=== PATIENT | male | born 1950 | race Caucasian/White ===

== ENCOUNTER 2017-06-12 04:45 | Emergency (ER) | payer MEDICARE, OTHER ==
[~2017-06-12] VITALS: Ht 175.3 cm; Wt 72.4 kg
[2017-06-12] MEDS ORDERED: LIDOCAINE 1%, 20ML ONE (05:50)
[2017-06-12] MEDS ORDERED: LIDOCAINE 1%, 20ML SQ ONE (06:00)
[2017-06-12] MEDS ORDERED: CEFTRIAXONE 1,000 MG IM ONE (06:00)
[2017-06-12] MEDS ORDERED: SODIUM CHLORIDE FLUSH 10ML SYR IVF ONE (06:00)
[2017-06-12 06:24] LABS: BLOOD UREA NITROGEN 32 mg/dL (7-18)
[2017-06-12] MEDS ORDERED: CEFTRIAXONE PMX 1GM/50ML 50 ML ONE (06:30)
[2017-06-12] MEDS ORDERED: CEFTRIAXONE PMX 1GM/50ML 50 ML IV ONE (07:00)
[2017-06-12] MEDS ORDERED: BACITRACIN ZINC OINT 500U/GM, 0.9 GM ONE (07:02)
[2017-06-12 07:13] VITALS: BP 137/79
== END 2017-06-12 07:18 | disposition home or self-care (01) ==
LOC: ED 06:35
DX: L03.011 Cellulitis of right finger (principal); L02.511 Cutaneous abscess of right hand; I10 Essential (primary) hypertension; E78.00 Pure hypercholesterolemia, unspecified; F17.200 Nicotine dependence, unspecified, uncomplicated
CPT/HCPCS: 26010; 36415; 80048; 82040; 85025; 87070; 87205; 99284

== ENCOUNTER 2017-06-13 08:21 | Emergency (ER) | payer MEDICARE, OTHER ==
[~2017-06-13] VITALS: Ht 175.3 cm; Wt 72.0 kg
[2017-06-13 08:24] VITALS: BP 156/80
[2017-06-13] MEDS ORDERED: CEFTRIAXONE 1,000 MG IM ONE (09:30)
[2017-06-13] MEDS ORDERED: BACITRACIN ZINC OINT 500U/GM, 0.9 GM ONE (09:31)
[2017-06-13] MEDS ORDERED: LIDOCAINE 1%, 20ML ONE (09:49)
[2017-06-13] MEDS ORDERED: CEFTRIAXONE 1,000 MG ONE (09:49)
== END 2017-06-13 10:19 | disposition home or self-care (01) ==
LOC: ED 09:18
DX: L03.113 Cellulitis of right upper limb (principal); I10 Essential (primary) hypertension; E78.00 Pure hypercholesterolemia, unspecified
CPT/HCPCS: 96372; 99283; J0696

== ENCOUNTER 2017-08-21 06:18 | Emergency (ER) | payer MEDICARE, OTHER ==
[~2017-08-21] VITALS: Ht 165.1 cm; Wt 73.3 kg
[2017-08-21 06:37] LABS: HEMATOCRIT 47.4 % (39.2-51.8); HEMOGLOBIN 15.9 g/dL (13.7-18.0); WHITE BLOOD COUNT 9.3 x10^3/uL (3.4-10)
[2017-08-21] MEDS ORDERED: ALTEPLASE IV ONE ×3 (07:30→08:00)
[2017-08-21] MEDS ORDERED: SODIUM CHLORIDE 0.9% 1,000 ML IV ONE (07:51)
[2017-08-21] MEDS ORDERED: SODIUM CHLORIDE FLUSH 10ML SYR IVF PRN (08:00)
[2017-08-21 09:03] VITALS: BP 122/65
== END 2017-08-21 10:20 | disposition short-term general hospital (02) ==
LOC: ED 07:18 → EDIP 07:52 → UNDOADMIN 07:52 → ED 10:20
DX: I63.311 Cerebral infarction due to thrombosis of right middle cerebral artery (principal); I10 Essential (primary) hypertension
CPT/HCPCS: 36415; 70450; 71010; 80047; 84484; 85025; 85610; 85730; 93005; 96365; 96375; 99291; J2997; J7030

== ENCOUNTER → 2017-12-02 | Outpatient (CLI) | payer MEDICARE, OTHER ==
[~2017-12-02] MED LIST: ASPI-621 PO; ATOR-2 PO; CLOP75TA PO; METO25TA35 PO
[2017-12-02 11:12] LABS: BASOPHILS # (AUTO) 0.04 x10^3/uL (0-0.1); BASOPHILS % (AUTO) 1 % (0-1); EOSINOPHILS # (AUTO) 0.37 x10^3/uL (0-0.4); EOSINOPHILS % (AUTO) 6 % (1-7); LYMPHOCYTES # (AUTO) 1.73 x10^3/uL (1-3.4); LYMPHOCYTES % (AUTO) 29 % (22-44); MD NO; MEAN CORPUSCULAR HEMOGLOBIN 30.7 pg (27.5-34.5); MEAN CORPUSCULAR HGB CONC 32.9 g/dL (33.2-36.2); MEAN CORPUSCULAR VOLUME 93.2 fL (81-97); MEAN PLATELET VOLUME 8.4 fL (7.4-10.4); MONOCYTES % (AUTO) 8 % (2-9); NEUTROPHILS # (AUTO) 3.44 x10^3/uL (1.8-6.8); NEUTROPHILS % (AUTO) 57 % (42-75); PLATELET COUNT 204 x10^3/uL (130-400); RED BLOOD COUNT 4.84 x10^6/uL (4.38-5.82)
[2017-12-02 11:16] LABS: ALBUMIN 3.5 g/dL (3.4-5.0); ANION GAP 7 mmol/L (5-15); CALCIUM 9.1 mg/dL (8.5-10.1); CHLORIDE 108 mmol/L (98-107)
[2017-12-02 11:19] LABS: ALANINE AMINOTRANSFERASE 34 U/L (12-78); ALKALINE PHOSPHATASE 134 U/L (45-117); BILIRUBIN,TOTAL 0.5 mg/dL (0.2-1.0); CREATININE 0.79 mg/dL (0.7-1.3); TOTAL PROTEIN 6.5 g/dL (6.4-8.2)
== END | disposition home or self-care (01) ==
LOC: STAR 09:57
PROVIDERS: ATTEND Surgery
DX: Z01.818 Encounter for other preprocedural examination (principal); R94.31 Abnormal electrocardiogram [ECG] [EKG]
CPT/HCPCS: 36415; 80053; 85025; 93005

== ENCOUNTER 2017-12-08 12:56 | Inpatient (IN) | payer MEDICARE, OTHER ==
[2017-12-02 10:21] VITALS: BP 156/88
[~2017-12-08] VITALS: Ht 175.3 cm; Wt 65.3 kg
[2017-12-08] MEDS ORDERED: LACTATED RINGERS 1,000 ML IV SCH ×2 (13:12→13:32)
[2017-12-08] MEDS ORDERED: LIDOCAINE 1%, 2ML SQ PRN (13:30)
[2017-12-08] MEDS ORDERED: BUPIVACAINE/PF 0.5% ONE (14:07)
[2017-12-08] MEDS ORDERED: PROTAMINE SULFATE 10 MG/ML, 5ML ONE (14:07)
[2017-12-08] MEDS ORDERED: LIDOCAINE 1%, 50ML ONE (14:07)
[2017-12-08] MEDS ORDERED: PAPAVERINE 30 MG/ML, 2ML ONE (14:07)
[2017-12-08] MEDS ORDERED: THROMBIN 20,000 UNIT VIAL TP ONE (14:08)
[2017-12-08] MEDS ORDERED: EPINEPHRINE 1 MG/ML, 1ML ONE (14:08)
[2017-12-08] MEDS ORDERED: BACITRACIN 50,000 UNIT ONE (14:08)
[2017-12-08] MEDS ORDERED: HEPARIN 1,000 UNITS/ML, 10ML ONE (14:08)
[2017-12-08] MEDS ORDERED: MIDAZOLAM 1 MG/ML, 2ML ONE (14:12)
[2017-12-08] MEDS ORDERED: FENTANYL PF 250 MCG/5ML ONE (14:12)
[2017-12-08] MEDS ORDERED: PROPOFOL 10 MG/ML, 20ML ONE (14:17)
[2017-12-08] MEDS ORDERED: ROCURONIUM 10 MG/ML,10ML ONE (14:17)
[2017-12-08] MEDS ORDERED: SODIUM CHLORIDE 0.9% PF 10ML ONE (14:18)
[2017-12-08] MEDS ORDERED: CEFAZOLIN 1,000 MG ONE ×2 (14:19)
[2017-12-08] MEDS ORDERED: REMIFENTANIL 2 MG ONE (14:28)
[2017-12-08] MEDS ORDERED: HYDROmorphone 1 MG/ML, 1ML IV PRN (15:00)
[2017-12-08] MEDS ORDERED: OXYcodone 5 MG/5 ML ORAL.SOL UDC PO PRN (15:00)
[2017-12-08] MEDS ORDERED: LABETALOL 5MG/ML, 20ML IV PRN (15:00)
[2017-12-08] MEDS ORDERED: ONDANSETRON 2MG/ML, 2ML IVPush PRN (15:00)
[2017-12-08] MEDS ORDERED: PROMETHAZINE 25 MG/ML, 1ML IV PRN (15:00)
[2017-12-08] MEDS ORDERED: FENTANYL PF 100 MCG/2ML IV PRN (15:00)
[2017-12-08] MEDS ORDERED: hydrALAzine 20 MG/ML, 1ML IV PRN (15:00)
[2017-12-08] MEDS ORDERED: MEPERIDINE/PF 25MG/0.5ML IVPush PRN (15:00)
[2017-12-08] MEDS ORDERED: ACETAMINOPHEN 325 MG TABLET PO PRN ×2 (15:00→21:00)
[2017-12-08] MEDS ORDERED: PHENYLEPHRINE 10 MG/ML ONE (15:07)
[2017-12-08] MEDS ORDERED: NEOSTIGMINE 1 MG/ML, 10ML ONE (16:19)
[2017-12-08] MEDS ORDERED: GLYCOPYRROLATE 0.4 MG/2 ML, 2ML ONE ×2 (16:19)
[2017-12-08] MEDS ORDERED: hydrALAzine 20 MG/ML, 1ML ONE (19:25)
[2017-12-08] MEDS: SODIUM CHLORIDE FLUSH 10ML SYR IVF SCH (21:00)
[2017-12-08] MEDS ORDERED: ENOXAPARIN 40 MG/0.4 ML SQ SCH (21:00)
[2017-12-08] MEDS ORDERED: LABETALOL 5MG/ML, 20ML IVPush PRN (21:00)
[2017-12-08] MEDS ORDERED: ONDANSETRON 2MG/ML, 2ML IV PRN (21:00)
[2017-12-08] MEDS ORDERED: ATORVASTATIN 80 MG TABLET PO SCH (21:00)
[2017-12-08] MEDS ORDERED: morphine SULFATE 10 MG/ML, 1ML IV PRN (21:00)
[2017-12-08] MEDS ORDERED: PHENYLEPHRINE 10 MG in DEXTROSE 5% 249 ML IV SCH (21:00)
[2017-12-08] MEDS ORDERED: POTASSIUM CHLORIDE 20 MEQ in D5%-0.45% NACL 1,000 ML IV SCH (21:00)
[2017-12-08] MEDS ORDERED: HYDROcodone/APAP 5/325 TABLET PO PRN (21:00)
[2017-12-08] MEDS ORDERED: NITROPRUSSIDE 50 MG in DEXTROSE 5% 248 ML IV SCH (21:00)
[2017-12-08 23:38] VITALS: BP 111/59
[2017-12-09 03:40] VITALS: BP 112/59
[2017-12-09] MEDS ORDERED: METOPROLOL TARTRATE 25 MG TABLET PO SCH (06:00)
[2017-12-09 06:50] VITALS: BP 112/55
[2017-12-09] MEDS: SODIUM CHLORIDE FLUSH 10ML SYR IVF SCH (07:38)
[2017-12-09] MEDS ORDERED: ASPIRIN 81 MG TABLET CHEW PO SCH (09:00)
[2017-12-09] MEDS ORDERED: CLOPIDOGREL 75 MG TABLET PO SCH (09:00)
[2017-12-09] MEDS ORDERED: HYDR-3307 PO (09:51)
[2017-12-09] MEDS ORDERED: DOCU-131 PO (09:56)
[2017-12-09] MEDS ORDERED: ONDA4TAB10 PO (09:57)
== END 2017-12-09 10:06 | disposition home or self-care (01) | DRG 38 ==
LOC: ORIP 12:56 → 4NOR 20:10 → DCLOUNGE 12-09 09:57
PROVIDERS: ADMIT Surgery; ATTEND Surgery
PROC: 03UK0JZ Supplement Right Internal Carotid Artery with Synthetic Substitute, Open Approach (ICD-10-PCS; 2017-12-08)
PROC: 03CK0ZZ Extirpation of Matter from Right Internal Carotid Artery, Open Approach (ICD-10-PCS; principal; 2017-12-08 15:00)
DX: I65.21 Occlusion and stenosis of right carotid artery (principal); I69.954 Hemiplegia and hemiparesis following unspecified cerebrovascular disease affecting left non-dominant side; I10 Essential (primary) hypertension; Z87.891 Personal history of nicotine dependence; I69.992 Facial weakness following unspecified cerebrovascular disease
CPT/HCPCS: 36415; 86850; 86900; 88305; 95938; 95941; J0171; J0690; J1644; J1650; J2250; J2704; J2710; J2720; J3010; J3480; J3490; C1768; J0360; J2370; J2440; J7120